=== PATIENT | male | born 1970 | race Hispanic/Latino ===

== ENCOUNTER → 2023-08-03 | Outpatient (CLI) | payer BC ==
[2023-08-03 12:37] LABS: ALBUMIN 3.8 g/dL (3.5-5.0); BILIRUBIN,TOTAL 0.3 mg/dL (0.2-1.0); CREATININE 1.1 mg/dL (0.5-1.5); POTASSIUM 4.5 mmol/L (3.5-5.1); TOTAL PROTEIN, SERUM 7.6 g/dL (6.0-8.3)
== END | disposition home or self-care (01) ==
LOC: LAB 07-31 08:32
PROVIDERS: ATTEND Student in an Organized Health Care Education/Training Program
DX: R07.9 Chest pain, unspecified (principal)
CPT/HCPCS: 36415; 80053; 80061

== ENCOUNTER → 2023-08-08 | Outpatient (CLI) | payer BC | END | disposition home or self-care (01) | LOC: SHCH 09:38 | PROVIDERS: ATTEND Student in an Organized Health Care Education/Training Program | DX: R07.9 Chest pain, unspecified (principal) | CPT/HCPCS: 93306 ==

== ENCOUNTER → 2023-08-13 | Outpatient (CLI) | payer BC ==
[~2023-08-13] MED LIST: IOHEXOL 350 MG/ML 100ML INFUS..BTL IV ONE; METOPROLOL TARTRATE 1 MG/ML 5ML VIAL IV ONE
== END | disposition home or self-care (01) ==
LOC: RAH 07:48
PROVIDERS: ATTEND Student in an Organized Health Care Education/Training Program
DX: I25.10 Atherosclerotic heart disease of native coronary artery without angina pectoris (principal); R07.9 Chest pain, unspecified
CPT/HCPCS: 75574; J3490; Q9967 ×2

== ENCOUNTER 2023-10-13 06:00 | Day surgery (SDC) | payer BC ==
[2023-10-09 09:15] LABS: BASOPHILS # (AUTO) 0.04 K/uL (0.00-0.20); BASOPHILS % (AUTO) 0.6 % (0.0-5.0); EOSINOPHILS # (AUTO) 0.06 K/uL (0.00-0.70); EOSINOPHILS % (AUTO) 0.9 % (0.0-8.0); HEMATOCRIT 42.6 % (42-54); IMMATURE GRANULOCYTE ABSOLUTE 0.13 K/uL (0-1); LYMPHOCYTES # (AUTO) 1.6 K/uL (1.0-4.8); LYMPHOCYTES % (AUTO) 23.6 % (21.0-51.0); MEAN CORPUSCULAR HEMOGLOBIN 26.7 pg (27.0-33.0); MEAN CORPUSCULAR HGB CONC 33.6 g/dL (32.0-36.0); MEAN CORPUSCULAR VOLUME 79.5 fL (79-99); MONOCYTES # (AUTO) 0.5 K/uL (0.1-1.0); NEUTROPHILS # (AUTO) 4.4 K/uL (1.8-7.7); PLATELET COUNT (AUTO) 158 K/uL (130-400); RED BLOOD CELL COUNT(AUTO) 5.36 MIL/uL (4.50-6.20); RED CELL DISTRIBUTION WIDTH 14.6 % (11.0-15.5); WHITE BLOOD COUNT (AUTO) 6.7 K/uL (4.8-10.8)
[2023-10-09 09:18] LABS: APPEARANCE,URINE CLEAR (CLEAR); BILIRUBIN,URINE NEGATIVE (NEGATIVE); COLOR,URINE LIGHT-YELLOW (YELLOW); GLUCOSE, URINE (UA) NEGATIVE (NEGATIVE); KETONES,URINE NEGATIVE (NEGATIVE); LEUKOCYTE ESTERASE ,URINE NEGATIVE Leu/uL (NEGATIVE); NITRATE,URINE NEGATIVE (NEGATIVE); PH,URINE 5.5 (5.0-8.0); PROTEIN,URINE NEGATIVE (NEGATIVE); UROBILINOGEN,URINE 0.2 mg/dL (0.2-1.0)
[2023-10-09 09:23] LABS: ADD UA MICROSCOPIC YES
[2023-10-09 09:24] LABS: POTASSIUM 3.6 mmol/L (3.5-5.1)
[2023-10-09 09:24] LABS: BACTERIA,URINE RARE /HPF (None Seen); MUCUS,URINE RARE LPF (None Seen); WBC,URINE 0-1 /HPF (0-1)
[2023-10-09 09:41] VITALS: BP 176/86; PULSE 70; RESP 18
[2023-10-09 09:41] LABS: INR 0.98 (0.85-1.15); PROTHROMBIN TIME 11.6 SEC (9.6-11.6)
[2023-10-09 09:42] LABS: PARTIAL THROMBOPLASTIN TIME 27.1 SEC (26.3-35.5)
[2023-10-09 10:00] LABS: B-TYPE NATRIURETIC PEPTIDE 6 pg/mL (0-100)
[~2023-10-13] VITALS: Ht 182.9 cm; Wt 138.1 kg
[2023-10-13] VITALS (8 sets, daily range): BP systolic 104–167; BP diastolic 60–78; PULSE 45–65; RESP 14–18
[~2023-10-13 06:00] MED LIST changes: +ASPI-1443 PO; +BENA40TA92 PO; +HYDR25TA PO; -IOHEXOL 350 MG/ML 100ML INFUS..BTL IV ONE; -METOPROLOL TARTRATE 1 MG/ML 5ML VIAL IV ONE; +MULT-1259 PO; +SIMV-46 PO
[2023-10-13] MEDS ORDERED: IOHEXOL 350 MG/ML 100ML INFUS..BTL IV ONE (07:26)
[2023-10-13] MEDS ORDERED: MIDAZOLAM HCL 1 MG/ML 2ML VIAL ONE ×2 (07:26→07:45)
[2023-10-13] MEDS ORDERED: IOHEXOL-350 75 ML VIAL IV ONE (07:26)
[2023-10-13] MEDS ORDERED: LIDOCAINE HCL 400MG/20ML VIAL ONE (07:26)
[2023-10-13] MEDS ORDERED: VERAPAMIL HCL 2.5 MG/ML VIAL ONE (07:26)
[2023-10-13] MEDS ORDERED: FENTANYL CITRATE PF 50 MCG/1 ML 2ML VIAL ONE (07:26)
[2023-10-13] MEDS ORDERED: NITROGLYCERIN 50MG VIAL ONE (07:27)
[2023-10-13] MEDS ORDERED: HEPARIN 10,000 UNIT/10ML (1,000 UNIT/ML) VIAL ONE (07:27)
[2023-10-13] MEDS: 0.9%NACL 1000ML 1,000 ML IV ONE (08:02)
[2023-10-13] MEDS ORDERED: GLUCAGON 1MG KIT 1 MG ML IM PRN (08:30)
[2023-10-13] MEDS ORDERED: DEXTROSE 50%-WATER 50 ML DISP.SYRIN IV PRN (08:30)
== END 2023-10-13 10:35 | disposition home or self-care (01) ==
LOC: DAH 06:00
PROVIDERS: ATTEND Student in an Organized Health Care Education/Training Program
DX: I25.42 Coronary artery dissection (principal); I25.118 Atherosclerotic heart disease of native coronary artery with other forms of angina pectoris; R94.31 Abnormal electrocardiogram [ECG] [EKG]; I10 Essential (primary) hypertension; E78.5 Hyperlipidemia, unspecified; R94.5 Abnormal results of liver function studies; Z79.82 Long term (current) use of aspirin; Z79.01 Long term (current) use of anticoagulants; Z79.899 Other long term (current) drug therapy
CPT/HCPCS: 80048; 83880; 85025; 85610; 85730; 81001; 36415; 71045; 93458; C1769; C1894; A4649; Q9965; J3010; J3490 ×3; J7030; J1644 ×2; J2250 ×2; Q9967 ×2; A4215; A4222; A4221; A4663; A4216; A4606; A4223 ×3; 99156; 99157

== ENCOUNTER 2024-07-30 13:56 | Emergency (ER) | payer BC ==
[~2024-07-30] VITALS: Ht 182.9 cm; Wt 145.1 kg
--- NOTE | 2024-07-30 14:06 | ERN ---
ED Note History of Present Illness Stated Complaint: NAUSEA,VOMITING,DIZZYNESS Time Seen by MD: 13:57 Dictation: PATIENT IS A 53-YEAR-OLD MALE COMING IN TODAY WITH COMPLAINTS OF HAVING INTERMITTENT DIZZINESS WITH THE ROOM SPINNING AND NAUSEA GENERAL BY SWEATY WEAKNESS ONSET YESTERDAY AFTER HE LEFT THE GYM. HE STATES THAT RESOLVED AND HE WENT TO BED FEELING FINE WOKE UP THIS MORNING AND WENT TO HIS MOTHER'S HOUSE WHEN THE SENSATION HIT HIM AGAIN. HE IS COMPLAINING OF A FRONTAL HEADACHE. NO CHEST PAIN NO BACK PAIN NO SOB NIH IS 0. HE STATES HE HAS HAD NAUSEA SINCE THE ONSET THIS MORNING. SAID HE FEELS LIKE THE ROOM IS SPINNING. HE DOES HAVE A HISTORY OF HYPERTENSION CHOLESTEROL. TOOK HIS MEDICATIONS THIS MORNING. PATIENT STATES HE HAD A HEART CATHETERIZATION DONE BY DR. ELIEL ALDANA TWO MONTHS AGO AND WAS TOLD EVERYTHING WAS FINE. Allergies: Coded Allergies: No Known Drug Allergies (Unverified Allergy, Unknown, 10/09/23) Home Meds Reported Medications Hydrochlorothiazide (Hydrochlorothiazide) 25 Mg Tablet, 25 MG PO AM, TAB 10/09/23 Simvastatin (Simvastatin) 40 Mg Tablet, 40 MG PO HS, TAB 10/09/23 Aspirin (Aspirin EC) 81 Mg Tablet.dr, 81 MG PO AM, TAB 10/09/23 Multivits,Ca,Min/Iron/FA/Lycop (Centrum Men's Tablet) 8 Mg Iron-200 Mcg-600 Mcg Tablet, 1 EACH PO AM, TAB 10/09/23 Benazepril HCl (Benazepril HCl) 40 Mg Tablet, 40 MG PO AM, TAB 10/09/23 Past Medical History RN Note Reviewed/Agreed w/PFSH: Yes Review of System Dictation CONSTITUTIONAL: NEGATIVE EXCEPT FOR HPI HEAD/FACE: NEGATIVE EXCEPT FOR HPI EENT: NEGATIVE EXCEPT FOR HPI RESPIRATORY: NEGATIVE EXCEPT FOR HPI GASTROINTESTINAL/ABDOMINAL: NEGATIVE EXCEPT FOR HPI NAUSEA VOMITING GENITOURINARY: NEGATIVE EXCEPT FOR HPI MUSCULOSKELETAL: NEGATIVE EXCEPT FOR HPI INTEGUMENTARY: NEGATIVE EXCEPT FOR HPI NEUROLOGICAL/PSYCH: NEGATIVE EXCEPT FOR HPI DIZZINESS HEMATOLOGIC/LYMPHATIC: NEGATIVE EXCEPT FOR HPI ALL SYSTEMS NEGATIVE, EXCEPT NOTED ABOVE. 13 POINT REVIEW OF SYSTEMS ASSESSED AND ALL NEGATIVE EXCEPT FOR ABOVE. Initial Vital Sign VS Vital Signs Date Time Temp Pulse Resp B/P (MAP) Pulse Ox O2 Delivery O2 Flow Rate FiO2 07/30/24 14:04 97.9 72 18 141/77 97 07/30/24 14:27 Room Air* 0 21 Physical Exam Dictation VITAL SIGNS REVIEWED GENERAL APPEARANCE: ALERT, ORIENTED X 3, OBESE AND NAUSEATED. NO PAIN AT THIS TIME. HEAD AND FACE: NON-TRAUMATIC. EYES: PERRL, PINK CONJUNCTIVAS, EYELID NO TRAUMA, ANTERIOR CHAMBER WITH ARCUS SENILIS. LEFT HORIZONTAL NYSTAGMUS EARS: PINNAS INTACT AND NO SIGNS OF TRAUMA OR ERYTHEMA EAR CANALS CLEAR AND NO DISCHARGE TM NO ERYTHEMA NOSE: NO DISCHARGE, NO BLEEDING. OROPHARYNX: MOUTH NORMAL, TONGUE PINK, PHARYNX CLEAR,NO ERYTHEMA, TONSILS NO EXUDATES, NO ABSCESSES NOTED, MUCOUS MEMBRANE MOIST NECK: SUPPLE, NON-TENDER, NO THYROMEGALY, NO MASSES, NO JVD, NO BRUITS BREAST:DEFERRED CHEST:NO TENDERNESS, NO CREPITUS, NO PARADOXICAL MOVEMENT, NO RETRACTIONS LUNGS:CLEAR, WELL-VENTILATED, SYMMETRIC, NO RALES, NO WHEEZING, NO RHONCHI, NO STRIDOR, GOOD BREATH SOUNDS BILATERALLY HEART: REGULAR RATE, REGULAR RHYTHM, NO MURMUR, NO GALLOPS VASCULAR: NO PERIPHERAL EDEMA, ABDOMEN: SOFT, POSITIVE BOWEL SOUNDS, NONDISTENDED, NO GUARDING, NONTENDER, NO REBOUND, NO MASSES NO HEPATOMEGALY, NO SPLENOMEGALY, NO MCKOY'S SIGN, NO HERNIAS. RECTAL: DEFERRED GENITAL: DEFERRED NEUROLOGICAL: NORMAL SPEECH, MOTOR FUNCTION INTACT, SENSORY FUNCTION INTACT NIH IS 0 MUSCULOSKELETAL: NECK NONTENDER, FULL RANGE OF MOTION, BACK NONTENDER, FULL RANGE OF MOTION, EXTREMITIES: NONTENDER, FULL RANGE OF MOTION SKIN: COLOR PINK, DRY, NO TURGOR, NO RASH, NO LACERATIONS, NO ABRASIONS, NO CONTUSIONS. LYMPHATIC: DEFERRED Results (Laboratory/Radiology) Laboratory/Radiology Laboratory Tests Test 07/30/24 14:16 07/30/24 17:13 White Blood Count 9.7 K/uL (4.8-10.8) Red Blood Count 4.91 MIL/uL (4.50-6.20) Hemoglobin 12.9 g/dL (14.0-18.0) L Hematocrit 38.2 % (42-54) L Mean Corpuscular Volume 77.8 fL (79-99) L Mean Corpuscular Hemoglobin 26.3 pg (27.0-33.0) L Mean Corpuscular Hemoglobin Concent 33.8 g/dL (32.0-36.0) Red Cell Distribution Width 15.7 % (11.0-15.5) H Platelet Count 172 K/uL (130-400) Mean Platelet Volume 9.2 fL (7.5-10.5) Immature Granulocyte % (Auto) 1.7 % (0-1) H Neutrophils (%) (Auto) 58.2 % (40.0-77.0) Lymphocytes (%) (Auto) 29.8 % (21.0-51.0) Monocytes (%) (Auto) 9.5 % (3.0-13.0) Eosinophils (%) (Auto) 0.5 % (0.0-8.0) Basophils (%) (Auto) 0.3 % (0.0-5.0) Neutrophils # (Auto) 5.6 K/uL (1.8-7.7) Lymphocytes # (Auto) 2.9 K/uL (1.0-4.8) Monocytes # (Auto) 0.9 K/uL (0.1-1.0) Eosinophils # (Auto) 0.05 K/uL (0.00-0.70) Basophils # (Auto) 0.03 K/uL (0.00-0.20) Absolute Immature Granulocyte (auto 0.16 K/uL (0-1) Nucleated Red Blood Cells 0.0 % (0.0-0.19) Sodium Level 140 mmol/L (136-145) Potassium Level 2.9 mmol/L (3.5-5.1) *L Chloride Level 102 mmol/L (101-111) Carbon Dioxide Level 21 mmol/L (21-32) Blood Urea Nitrogen 12 mg/dL (7-18) Creatinine 1.1 mg/dL (0.5-1.3) Glomerular Filtration Rate Calc 80 mL/min (>90) Random Glucose 147 mg/dL (70-105) H Total Calcium 9.2 mg/dL (8.5-10.1) Magnesium Level 1.60 mg/dL (1.80-2.40) L Troponin I High Sensitivity 6 ng/L (4-75) Urine Color LIGHT-YELLOW (YELLOW) Urine Appearance CLEAR (CLEAR) Urine pH 7.5 (5.0-8.0) Urine Specific [place] 1.013 (1.001-1.031) Urine Protein NEGATIVE mg/dL (NEGATIVE) Urine Glucose (UA) NEGATIVE mg/dL (NEGATIVE) Urine Ketones 20 mg/dL (NEGATIVE) H Urine Occult Blood NEGATIVE (NEGATIVE) Urine Nitrate NEGATIVE (NEGATIVE) Urine Bilirubin NEGATIVE mg/dL (NEGATIVE) Urine Urobilinogen 0.2 mg/dL (0.2-1.0) Urine Leukocyte Esterase NEGATIVE Narinder/uL Urine RBC 0-1 /HPF (0-1) Urine WBC 0-1 /HPF (0-1) Urine Bacteria None /HPF (None Seen) CT HEAD/BRAIN W/O CONTRAST HISTORY: Dizziness COMPARISON: None TECHNIQUE: Multiple sequential axial images of the head were obtained from the base of the skull through vertex. Patient was not given contrast through intravenous route. FINDINGS: The ventricles and extraventricular CSF spaces are nondilated for patient's age. There is no midline shift, mass effect or herniation. No acute intracranial bleed is seen. Visualized portion of the paranasal sinuses are grossly within normal limits. IMPRESSION: 1. No acute intracranial bleed is seen. CHEST 1VW HISTORY: Shortness of breath COMPARISON: 10/09/2023 FINDINGS: A frontal projection of the chest was obtained. There are bilateral pulmonary infiltrates suggestive of pulmonary vascular congestion with possible superimposed pneumonitis. The study is limited due to patient's large body habitus. The heart is borderline enlarged. Prominent interstitial markings are seen. No evidence of aortic calcification is seen. IMPRESSION: 1. Mild bilateral pulmonary infiltrates are seen may be related to mild pulmonary vascular congestion with possible superimposed pneumonitis. Labs Reviewed?: Yes EKG Comment: EKG SINUS RHYTHM/HEART RATE 72/NONSPECIFIC CHANGES TO ANTERIOR LEADS V1 TWO AND V4 ED Course ED Course Orders Procedure Category Date Status Time Ondansetron Odt 4mg PHA 07/30/24 Complete Tab (Zofran 4mg Odt) 14:30 Cbc With Differential LAB 07/30/24 Complete 14:02 Chest 1vw RAD 07/30/24 Resulted 14:02 12 Lead Ekg Tracing- EKG 07/30/24 Complete Technical 14:02 Magnesium LAB 07/30/24 Complete 14:02 Troponin I High LAB 07/30/24 Complete Sensitivity 14:02 Urinalysis Profile LAB 07/30/24 Complete 14:02 Basic Metabolic Panel LAB 07/30/24 Complete 14:02 0.9%Nacl 1000ml (Ns PHA 07/30/24 Complete 1000ml) 14:30 Ondansetron 4mg Inj PHA 07/30/24 Complete (Zofran 4mg Inj) 14:30 Ct Head/Brain W/O CT 07/30/24 Resulted Contrast 14:23 Potassium Bicarb/Cit PHA 07/30/24 Complete Ac 25meq (K-Lyte Ta 15:00 Ondansetron 4mg Inj PHA 07/30/24 Complete (Zofran 4mg Inj) 16:00 Current Medications Medications (Trade) Dose Ordered Sig/Wilfredo Route PRN Reason Start Time Stop Time Status Last Admin Dose Admin Ondansetron HCl (zoFRAN 4MG INJ) 4 mg ONCE ONCE IVP 07/30/24 14:30 07/30/24 14:31 DC 07/30/24 14:15 Ondansetron HCl (zoFRAN 4MG INJ) 4 mg ONCE ONCE IVP 07/30/24 16:00 07/30/24 16:01 DC 07/30/24 15:43 Ondansetron HCl (zoFRAN 4MG ODT) 4 mg ONCE ONCE SL 07/30/24 14:30 07/30/24 14:07 DC Potassium Bicarbonate (K-Lyte Tablet Eff 25 Meq Tablet.eff) 50 meq ONCE ONCE PO 07/30/24 15:00 07/30/24 15:01 DC 07/30/24 15:04 Sodium Chloride 1,000 ml @ 0 mls/hr ONCE ONCE IV 07/30/24 14:30 07/30/24 14:31 DC 07/30/24 14:15 Vital Signs Date Time Temp Pulse Resp B/P (MAP) Pulse Ox O2 Delivery O2 Flow Rate FiO2 07/30/24 16:58 64 14 134/78 97 Room Air* 0 21 07/30/24 14:27 97.5 60 18 118/62 100 Room Air* 0 21 07/30/24 14:04 97.9 72 18 141/77 97 SEVENTEEN 50, PATIENT WILL BE GIVEN SOLU-MEDROL AND MECLIZINE PRIOR TO DISCHARGE HOME. POTASSIUM HAS BEEN REPLACED AND MAGNESIUM WE WILL BE PLACED ORALLY. PATIENT ALSO INSTRUCTED TO STOP HIS POST WORKOUT MEDICATION UNTIL HE QUIT CLEARED BY HIS DOCTOR, THIS COULD BE THE SOURCE OF HIS ELECTROLYTE IMBALANCE SEVENTEEN 50 PATIENT ALSO STATED THAT HE HAD A CT OF THE ABDOMEN PELVIS DONE IN RADIOLOGY. RADIOLOGY WAS CALLED AND SPOKE TO THE TECH AND SHE SAID THAT THE CT SCAN HAS BEEN PERFORMED HOWEVER, WHEN SHE CLARIFIED THE ORDERS AND REALIZED IT WAS NOT ORDERED, SHE DID NOT SEND HIM TO THE RADIOLOGIST. ZE DAVID IN CHARGE NURSE WAS GIVEN INFORMATION ON SCAN BEING PERFORMED. ALSO PATIENT AND HIS WERE INSTRUCTED THAT A CT SCAN HAS BEEN PERFORMED. Medical Decision Making MDM MDM: DIFFERENTIAL DIAGNOSIS: ACS/AMI/CVA/ANEURYSM/ELECTROLYTE IMBALANCE/DEHYDRATION/VERTIGO RATIONALE: TESTS CONSIDERED AND ORDERED SECONDARY TO SHARED DECISION MAKING INCLUDE: RADIOLOGY/LABS/EKG PREVIOUS OUTSIDE RECORDS REVIEWED: OLD ER VISITS. REVIEWED RISK OF COMPLICATION AND/OR MORBIDITY OR MORTALITY OF PATIENT MANAGEMENT: NONE MEDICATIONS-PER MEDICATION RECONCILIATION NEED FOR HOSPITALIZATION: PATIENT DOES NOT MEET CRITERIA FOR HOSPITALIZATION. NO NEED FOR EMERGENCY MAJOR/MINOR SURGERY: NO THERE ARE NO SOCIAL CONCERNS WITH THIS PATIENT. PRESCRIPTION DRUG MANAGEMENT MECLIZINE/K-DUR/MAGNESIUM PRESCRIPTIONS WILL INCLUDE SYMPTOMATIC CARE PATIENT'S PRIOR EXTERNAL MEDICAL RECORDS FROM OTHER ER VISITS WERE REVIEWED BY ME INDICATED. PRIOR TESTING AND RESULTS FROM PREVIOUS VISITS WERE REVIEWED. PRIOR TESTS WERE TAKEN INTO ACCOUNT WITH MEDICAL DECISION MAKING AND RESOURCE UTILIZATION, INDEPENDENT HISTORIAN/HISTORIANS WERE USED TO OBTAIN COMPLETE MEDICAL HISTORY. I INDEPENDENTLY INTERPRETED THE TEST THAT WERE PERFORMED, RESULTS WERE REVIEWED BY ME AND CONSIDERED FINDINGS ON RADIOLOGY IF ORDERED. MEDICAL MANAGEMENT AND EXAMINATION INTERPRETATION DISCUSSIONS WERE HAD BY ME WITH OTHER QUALIFIED HEALTHCARE PROFESSIONALS INDICATED FOR THE PATIENT'S CARE. DX & DISP Disposition: Discharge Departure Impression: Primary Impression: Benign positional vertigo Additional Impressions: Hypokalemia, Hypomagnesemia Condition: Stable Scripts Magnesium Oxide/Mag Aa Chelate (Magnesium 300 mg Capsule) 300 Mg Capsule 300 MG PO DAILY for 10 Days, #10 CAP 0 Refills Prov: FRANK JARQUIN NP 07/30/24 Meclizine HCl (Meclizine HCl) 25 Mg Tablet 25 MG PO TID for vertigo, #30 TAB 0 Refills Prov: FRANK JARQUIN NP 07/30/24 Potassium Chloride (K-Dur/Klor-Con) 20 Meq Ertab 20 MEQ PO BID for 5 Days, #10 TAB.EC Prov: FRANK JARQUIN NP 07/30/24 Additional Instructions: FOLLOW-UP WITH PRIMARY CARE PROVIDER IN 1 TO 2 DAYS. TAKE MEDICATIONS DIRECTED HERE IN THE EMERGENCY ROOM. OKAY TO CONTINUE HOME MEDICATIONS UNLESS OTHERWISE DISCUSSED DURING YOUR VISIT IN THE EMERGENCY ROOM TODAY. RETURN TO YOUR NEAREST EMERGENCY ROOM IF SYMPTOMS WORSEN OR IF THERE IS NO IMPROVEMENT. CALL 911 IF YOU NEED IMMEDIATE ASSISTANCE. TAKE TYLENOL OR MOTRIN GMKD-IQR-ROMUATL NEEDED AND IF NO CONTRAINDICATIONS ARE PRESENT. INCREASE ORAL HYDRATION. A WOUND CULTURE OR URINE CULTURE WAS ORDERED HERE IN THE EMERGENCY ROOM DEPARTMENT PLEASE FOLLOW-UP WITH PRIMARY CARE PROVIDER AND ADVISE THEM TO GET REPEAT PORTS FROM OUR FACILITY. IF YOU HAD ANY LAURA WRAP/SPLINTS THAT WERE APPLIED HERE, PLEASE DO NOT REMOVE THEM UNTIL YOU SEE YOUR PRIMARY CARE OR SPECIALTY. TAKE MECLIZINE EVERY 8 HOURS FOR THE NEXT TWO DAYS. TAKE MAGNESIUM AND POTASSIUM DIRECTED. STOP YOUR POST WORKOUT MEDICATION AND NO COFFEE OR STIMULANTS UNTIL YOUR CLEARED BY YOUR DOCTOR ON THURSDAY. Referrals: DAEVY GALLO DO (PCP) Time of Disposition: 17:53 I have reviewed the case, and I agree with, Diagnosis and Plan FRANK JARQUIN NP Jul 30, 2024 14:06
[2024-07-30] MEDS: ondanSETRON 4MG INJ IVP ONE ×2 (14:15→15:43)
[2024-07-30] MEDS: 0.9%NACL 1000ML 1,000 ML IV ONE (14:15)
--- NOTE | 2024-07-30 14:18 | EKG ---
[facility] Test Date: 2024-07-30 Test Time: 14:13:27 Pat Name: CHANDANA SINHAZ Department: [facility] Room: Gender: M Environmental Officer: [id number] : [id number] Requested By: FRANK JARQUIN Order Number: [id number] Reading MD: Chandana Ruiz Measurements Intervals [place] Rate: 72 P: 49 [place]: 181 QRS: -13 QRSD: 106 T: -20 QT: 437 QTc: 480 Interpretive Statements Sinus rhythm Nonspecific T abnormalities, inferior leads Compared to ECG 10/09/2023 08:03:58 Myocardial infarct finding now present T-wave abnormality now present Left ventricular hypertrophy no longer present Electronically Signed On 08-01-2024 21:33:24 SEEING EYE DOG TEACHER by Chandana Ruiz Please click the below link to view image of tracing.
[2024-07-30 14:22] LABS: BASOPHILS # (AUTO) 0.03 K/uL (0.00-0.20); BASOPHILS % (AUTO) 0.3 % (0.0-5.0); EOSINOPHILS # (AUTO) 0.05 K/uL (0.00-0.70); EOSINOPHILS % (AUTO) 0.5 % (0.0-8.0); HEMATOCRIT 38.2 % (42-54); IMMATURE GRANULOCYTE ABSOLUTE 0.16 K/uL (0-1); LYMPHOCYTES # (AUTO) 2.9 K/uL (1.0-4.8); LYMPHOCYTES % (AUTO) 29.8 % (21.0-51.0); MEAN CORPUSCULAR HEMOGLOBIN 26.3 pg (27.0-33.0); MEAN CORPUSCULAR HGB CONC 33.8 g/dL (32.0-36.0); MEAN CORPUSCULAR VOLUME 77.8 fL (79-99); MONOCYTES # (AUTO) 0.9 K/uL (0.1-1.0); MONOCYTES % (AUTO) 9.5 % (3.0-13.0); NEUTROPHILS # (AUTO) 5.6 K/uL (1.8-7.7); NEUTROPHILS % (AUTO) 58.2 % (40.0-77.0); PLATELET COUNT (AUTO) 172 K/uL (130-400); RED BLOOD CELL COUNT(AUTO) 4.91 MIL/uL (4.50-6.20); RED CELL DISTRIBUTION WIDTH 15.7 % (11.0-15.5); WHITE BLOOD COUNT (AUTO) 9.7 K/uL (4.8-10.8)
[2024-07-30] MEDS ORDERED: ondanSETRON ODT 4MG TAB SL ONE (14:30)
--- NOTE | 2024-07-30 14:31 | HMCIMG ---
CHEST 1VW HISTORY: Shortness of breath COMPARISON: 10/09/2023 FINDINGS: A frontal projection of the chest was obtained. There are bilateral pulmonary infiltrates suggestive of pulmonary vascular congestion with possible superimposed pneumonitis. The study is limited due to patient's large body habitus. The heart is borderline enlarged. Prominent interstitial markings are seen. No evidence of aortic calcification is seen. IMPRESSION: 1. Mild bilateral pulmonary infiltrates are seen may be related to mild pulmonary vascular congestion with possible superimposed pneumonitis.
[2024-07-30 14:33] LABS: CREATININE 1.1 mg/dL (0.5-1.3); MAGNESIUM 1.6 mg/dL (1.80-2.40)
[2024-07-30 14:53] LABS: POTASSIUM 2.9 mmol/L (3.5-5.1)
[2024-07-30] MEDS: PoTASSium BIcarbonate/CIT AC 25 MEQ TABLET.EFF PO ONE (15:04)
--- NOTE | 2024-07-30 15:52 | HMCIMG ---
CT HEAD/BRAIN W/O CONTRAST HISTORY: Dizziness COMPARISON: None TECHNIQUE: Multiple sequential axial images of the head were obtained from the base of the skull through vertex. Patient was not given contrast through intravenous route. FINDINGS: The ventricles and extraventricular CSF spaces are nondilated for patient's age. There is no midline shift, mass effect or herniation. No acute intracranial bleed is seen. Visualized portion of the paranasal sinuses are grossly within normal limits. IMPRESSION: 1. No acute intracranial bleed is seen. CT was performed with one or more following dose reduction techniques: automated exposure control, adjustment of the mA and kv according to patient's size, or use of a iterative reconstruction technique.
[2024-07-30 17:25] LABS: APPEARANCE,URINE CLEAR (CLEAR); BILIRUBIN,URINE NEGATIVE (NEGATIVE); COLOR,URINE LIGHT-YELLOW (YELLOW); GLUCOSE, URINE (UA) NEGATIVE (NEGATIVE); KETONES,URINE 20 mg/dL (NEGATIVE); LEUKOCYTE ESTERASE ,URINE NEGATIVE Leu/uL (NEGATIVE); NITRATE,URINE NEGATIVE (NEGATIVE); OCCULT BLOOD,URINE NEGATIVE (NEGATIVE); PH,URINE 7.5 (5.0-8.0); PROTEIN,URINE NEGATIVE (NEGATIVE); UROBILINOGEN,URINE 0.2 mg/dL (0.2-1.0)
[2024-07-30 17:26] LABS: ADD UA MICROSCOPIC YES
[2024-07-30 17:27] LABS: RBC,URINE 0-1 /HPF (0-1); WBC,URINE 0-1 /HPF (0-1)
[2024-07-30] MEDS ORDERED: POTA-192 PO (17:54)
[2024-07-30] MEDS ORDERED: MAGN300C PO (17:54)
[2024-07-30] MEDS ORDERED: MECL-302 PO (17:54)
[2024-07-30] MEDS: Solu-medROL 125MG VIAL IVP ONE (17:59)
[2024-07-30] MEDS: mecliZINE HCL 25 MG TABLET PO ONE (18:01)
[2024-07-30 18:15] VITALS: BP 143/69; PULSE 81; RESP 14; TEMP 97.9; O2SAT 97
== END 2024-07-30 18:25 | disposition home or self-care (01) ==
LOC: EDH 13:56
DX: H81.12 Benign paroxysmal vertigo, left ear (principal); E83.42 Hypomagnesemia; E87.6 Hypokalemia; Z79.899 Other long term (current) drug therapy
CPT/HCPCS: 99284; 96374; 70450; 71045; 96361; 96375; 83735; 84484; 80048; 85025; 81001; 36415; 96376; 93005; J2919; J7030; J2405 ×2